=== PATIENT | male | born 1955 | race Caucasian/White ===

== ENCOUNTER 2017-12-19 08:26 | Day surgery (SDC) | payer BC ==
[~2017-12-19 08:26] MED LIST: ACETAMINOPHEN 1,000 MG/100 ML BTL IV ONE; CEFAZOLIN 2 Gram 2 GM/50 ML BAG IVPB ONE
[2017-12-19] MEDS ORDERED: ONDANSETRON HCL IV 4 MG/2 ML VIAL IVP ONE (08:27)
[2017-12-19] MEDS ORDERED: EPHEDRINE SULFATE 50 MG/ML ML IV ONE (08:27)
[2017-12-19] MEDS ORDERED: FENTANYL PF 100MCG/2ML VIAL IV ONE (08:27)
[2017-12-19] MEDS ORDERED: MIDAZOLAM HCL 2MG/2ML VIAL IV ONE (08:27)
[2017-12-19] MEDS ORDERED: BUPIVACAINE 0.5% W/EPI MPF 30 ML VIAL IVP ONE (08:27)
[2017-12-19] MEDS ORDERED: DEXAMETHASONE 4 MG/ML 1ML VIAL IVP ONE (08:27)
[2017-12-19] MEDS ORDERED: LIDOCAINE 2% MDV (20MG/ML) 20ML VIAL IV ONE (08:27)
[2017-12-19] MEDS ORDERED: SEVOFLURANE 250 ML INH ONE (08:27)
[2017-12-19] MEDS ORDERED: PROPOFOL 10 MG/ML VIAL IV ONE (08:27)
--- NOTE | 2017-12-22 09:40 | Operative Note ---
DATE: 12/19/2017. PREOPERATIVE DIAGNOSIS: RIGHT OLECRANON BURSITIS . POSTOPERATIVE DIAGNOSES: RIGHT OLECRANON SPUR. PROCEDURES: 1. EXCISION OF RIGHT OLECRANON BURSA. 2. EXCISION OF RIGHT OLECRANON SPUR. STAFF SURGEON: Mick Sullivan M.D. ANESTHESIA: General. PREPARATION: ChloraPrep. INDIVIDUAL CONSIDERATIONS: None. DESCRIPTION OF PROCEDURE: The patient was taken to the operating room and placed supine on the operating table. He had the successful induction of general anesthetic. His right upper extremity was prepped and draped in the usual fashion. The patient had an incision directly over the tip of the olecranon about 5.0 cm. The skin had been infiltrated with 0.5% Marcaine with epinephrine prior. Sharp dissection was carried down through the skin. Once through the skin and into the bursa, there was a large amount of clear fluid within the bursa. A large bursa was excised. I then went ahead and palpated a large spur within the triceps tendon on the radial side. I went ahead and opened it and shelled out about a white jelly vazquez sized retraction spur and calcification within the tendon. I then carried the dissection down to the tip of the olecranon and then found about a 0.5 cm x 0.5 cm spur. I removed this with the osteotome and smoothed it with the rongeur. After irrigation I repaired the longitudinal rent in the triceps with interrupted #1-0 Vicryl. Subcutaneous layer was closed with #2-0+ Vicryl, and the skin was closed with patrick. A Bulkee dressing was applied. The patient tolerated the procedure well, and needle and sponge counts were correct. Estimated blood loss was minimal, and he was taken back Recovery in good condition. There were no complications. Job Number: [id number] MTDD
== END 2017-12-19 13:43 | disposition home or self-care (01) ==
LOC: SUR 08:26
PROVIDERS: ATTEND Orthopaedic Surgery
DX: M25.721 Osteophyte, right elbow (principal); I10 Essential (primary) hypertension; E78.00 Pure hypercholesterolemia, unspecified; M10.9 Gout, unspecified
CPT/HCPCS: 24105; 24076; 01710; J2405; J3010; J0690